=== PATIENT | female | born 1985 | race Caucasian/White ===

== ENCOUNTER 2017-03-22 17:02 | Emergency (ER) | payer OTHER ==
[~2017-03-22] VITALS: Ht 172.7 cm; Wt 63.5 kg
[~2017-03-22 17:02] MED LIST: ALBUTEROL0.09 MG/A2 IH; CIPRO250 MG PO; FLEXERIL10 MG PO; LIDOCAINE VISC100 ML MM; LOMOTIL 0.025 M1 TA1 PO; MACROBID100 M1 PO; NKHM; PENICILLIN-VK500 MG PO; PREDNICOT20 MG PO; Peridex 473 ML473 ML PO; SUBUTEX2 MG SL; TRAMADOL HCL50 MG PO; VICODIN 5/500 505 MG PO; ZITHROMAX Z PA250 MG PO; ZOFRAN ODT4 MG SL; ZOFRAN4 MG PO; Zofran4 MG PO
[2017-03-22 17:07] VITALS: BP 121/66
[2017-03-22] MEDS ORDERED: ANAPROX DS550 MG PO (18:25)
[2017-03-22] MEDS ORDERED: CLINDAMYCIN HC300 MG PO (18:25)
[2017-03-22] MEDS ORDERED: NORCO 5-325 TA1 EACH PO (18:25)
== END 2017-03-22 17:39 | disposition left against medical advice (07) ==
LOC: ED 17:02
DX: K04.7 Periapical abscess without sinus (principal); F17.200 Nicotine dependence, unspecified, uncomplicated; Z88.8 Allergy status to other drugs, medicaments and biological substances

== ENCOUNTER 2018-01-26 17:27 | Emergency (ER) | payer SELFPAY ==
[~2018-01-26] VITALS: Ht 175.2 cm; Wt 63.5 kg
[~2018-01-26 17:27] MED LIST changes: +ANAPROX DS550 MG PO; +CLINDAMYCIN HC300 MG PO; +NORCO 5-325 TA1 EACH PO
[2018-01-26 17:29] VITALS: BP 124/82
[2018-01-26 18:21] LABS: BASO # 0.1 10*3/uL (0.0-0.1); BASO % 0.8 % (0.0-1.0); EOS # 0.4 10*3/uL (0.0-0.4); EOS % 4.6 % (1.0-4.0); HEMOGLOBIN 13.2 g/dl (12.0-16.0); LYMPH # 2.5 10*3/uL (1.3-4.4); LYMPH % 31.4 % (27.0-41.0); MEAN CELL VOLUME 90.7 fl (81.0-99.0); MEAN CORPUSCULAR HGB 29.9 pg (27.0-31.0); MEAN PLATELET VOLUME 9.4 fl (9.6-12.3); MONO # 0.6 10*3/uL (0.1-1.0); MONO % 7.9 % (3.0-9.0); NEUT # 4.4 10*3/uL (2.3-7.9); PLATELET COUNT AUTOMATED 279 10*3/uL (130-400); RED BLOOD COUNT 4.41 10*6/uL (4.10-5.10)
[2018-01-26 18:32] LABS: ACT PARTIAL THROMBO TIME 29.3 SECONDS (20.8-31.5)
[2018-01-26 18:37] LABS: ALBUMIN 4.1 gm/dl (3.1-4.5); ALKALINE PHOSPHATASE 47 U/L (45-117); BUN 13 mg/dl (7-24); CHLORIDE 104 mmol/L (98-107); POTASSIUM 3.4 mmol/L (3.5-5.1); SGOT/AST 17 IU/L (3-35); SGPT/ALT 20 U/L (12-78); SODIUM 139 mmol/L (136-145); TOTAL PROTEIN 7.5 gm/dL (6.4-8.2)
[2018-01-26 18:38] LABS: ACETAMINOPHEN (TYLENOL) < 5.0 ug/ml (10-30); ETHYL ALCOHOL < 3.0 mg/dl (<3)
[2018-01-26 18:57] LABS: BILIRUBIN NEGATIVE (NEGATIVE); BLOOD NEGATIVE (NEGATIVE); CLARITY CLEAR (CLEAR); COLOR YELLOW (YELLOW); GLUCOSE NEGATIVE (NEGATIVE); KETONE NEGATIVE (NEGATIVE); LEUKO ESTERASE NEGATIVE (NEGATIVE); NITRITE NEGATIVE (NEGATIVE); SPECIFIC GRAVITY <= 1.005 (1.005-1.030); UROBILINOGEN 0.2 E.U./dl (0.2-1.0)
[2018-01-26 19:02] LABS: BACTERIA TRACE; EPITHELIAL CELLS 0-2; RBC 0-2 rbc/hpf (0-2); WBC 0-2 wbc/hpf (0-5)
[2018-01-26 19:07] LABS: URINE AMPHETAMINES > 1000 (1000ng/ml); URINE BARBITURATES < 200 (200ng/ml); URINE BENZODIAZEPINES > 200 (200ng/ml); URINE CANNABINOIDS (THC) < 50 (50ng/ml); URINE COCAINE < 300 (300ng/ml); URINE METHADONE < 300 (300ng/ml); URINE OPIATES < 300 (300ng/ml)
[2018-01-26 19:12] LABS: URINE PHENCYCLIDINE < 25 (25ng/ml)
== END 2018-01-26 19:06 | disposition home or self-care (01) ==
LOC: ED 17:27
PROVIDERS: Emergency Medicine
DX: F31.9 Bipolar disorder, unspecified (principal); F90.9 Attention-deficit hyperactivity disorder, unspecified type; R21 Rash and other nonspecific skin eruption; R10.33 Periumbilical pain; F17.200 Nicotine dependence, unspecified, uncomplicated; Z88.8 Allergy status to other drugs, medicaments and biological substances; Z63.0 Problems in relationship with spouse or partner

== ENCOUNTER 2023-06-01 14:13 | Emergency (ER) | payer OTHER ==
[~2023-06-01] VITALS: Ht 172.7 cm; Wt 63.5 kg
[2023-06-01 14:27] VITALS: BP 136/96
[2023-06-01] MEDS ORDERED: Ondansetron Hydrochloride 4 MG/2 ML VIAL IV ONE ×2 (14:40→16:25)
[2023-06-01] MEDS ORDERED: HYDROmorphONE Hydrochloride 0.5 MG/0.5 ML SYRINGE IV ONE (14:40)
[2023-06-01] MEDS ORDERED: SODIUM CHLORIDE 0.9% 1,000 ML IV ONE (14:40)
[2023-06-01] MEDS ORDERED: IOHEXOL 300 MG/ML 100 ML VIAL IV ONE (14:45)
[2023-06-01 14:56] LABS: BASO # 0.1 10*3/uL (0.0-0.1); BASO % 0.5 % (0.0-1.0); EOS % 0.2 % (1.0-4.0); HEMATOCRIT 40.8 % (37.0-47.0); LYMPH # 0.8 10*3/uL (1.3-4.4); MEAN CELL VOLUME 91.1 fl (81.0-99.0); MEAN CORPUSCULAR HGB 30.4 pg (27.0-31.0); MEAN CORPUSCULAR HGB CONC 33.3 g/dl (33.0-37.0); MEAN PLATELET VOLUME 9.6 fl (9.6-12.3); MONO # 0.1 10*3/uL (0.1-1.0); MONO % 1.3 % (3.0-9.0); NEUT # 8.1 10*3/uL (2.3-7.9); NEUT % 88.8 % (47.0-73.0); PLATELET COUNT AUTOMATED 296 10*3/uL (130-400); RED BLOOD COUNT 4.48 10*6/uL (4.10-5.10); RED CELL DISTRI WIDTH 12.1 % (0-14.5); WHITE BLOOD COUNT 9.2 10*3/uL (4.8-10.8)
[2023-06-01 15:07] LABS: ACT PARTIAL THROMBO TIME 31.9 SECONDS (20.0-32.1)
[2023-06-01 15:15] LABS: ALKALINE PHOSPHATASE 40 U/L (46-116); BUN 8 mg/dl (9-23); CHLORIDE 108 mmol/L (98-107); LIPASE 25 U/L (12-53); POTASSIUM 3.5 mmol/L (3.4-5.1); SGPT/ALT 9 U/L (5-49)
[2023-06-01] MEDS ORDERED: diphenhydrAMINE hydrochloride 50 MG/ML VIAL IV ONE (15:25)
[2023-06-01] MEDS ORDERED: Metoclopramide Hydrochloride 10 MG/2 ML AMP IV ONE (15:25)
[2023-06-01 18:10] LABS: BILIRUBIN Negative (Negative); BLOOD Negative (Negative); CLARITY Clear (Clear); COLOR Yellow (Yellow); GLUCOSE Negative (Negative); KETONE 2+ (Negative); LEUKO ESTERASE Negative (Negative); NITRITE Negative (Negative); SPECIFIC GRAVITY >= 1.030 (1.001-1.030)
[2023-06-01 18:18] LABS: BACTERIA 1+
[2023-06-01] MEDS ORDERED: ONDANSETRON4 MG SL (18:31)
[2023-06-01] MEDS ORDERED: Ondansetron Hydrochloride 4 MG TAB SL ONE (18:50)
== END 2023-06-01 18:51 | disposition home or self-care (01) ==
LOC: ED 14:13
PROVIDERS: Nurse Practitioner Family
DX: R10.13 Epigastric pain (principal); E87.1 Hypo-osmolality and hyponatremia; R11.2 Nausea with vomiting, unspecified; N83.201 Unspecified ovarian cyst, right side; N94.89 Other specified conditions associated with female genital organs and menstrual cycle; F41.9 Anxiety disorder, unspecified; J44.9 Chronic obstructive pulmonary disease, unspecified; Z88.8 Allergy status to other drugs, medicaments and biological substances; Z98.890 Other specified postprocedural states